=== PATIENT | female | born 1970 | race Hispanic/Latino ===

== ENCOUNTER → 2020-05-03 | Day surgery (SDC) | payer BC, OTHER ==
[~2020-05-03] MED LIST: DICYCLOMINE HCL20 MG PO; ETOMIDATE 2 MG/ML 10 ML INJ IV ONE; OMEPRAZOLE40 MG PO; PROPOFOL IV EMULSION 10 MG/ML 20 ML VIAL ONE; VIT D PO
[2020-05-03 11:35] VITALS: BP 112/67
== END | disposition home or self-care (01) ==
LOC: OR 08:59
PROVIDERS: ATTEND Internal Medicine
DX: K29.70 Gastritis, unspecified, without bleeding (principal); K63.5 Polyp of colon; K21.0 Gastro-esophageal reflux disease with esophagitis; K64.0 First degree hemorrhoids; R32 Unspecified urinary incontinence; M94.0 Chondrocostal junction syndrome [Tietze]; Z01.810 Encounter for preprocedural cardiovascular examination; Z01.812 Encounter for preprocedural laboratory examination; Z11.59 Encounter for screening for other viral diseases
CPT/HCPCS: 43239; 45380; 45385; 93005; U0002